=== PATIENT | male | born 1980 | race Caucasian/White ===

== ENCOUNTER 2020-07-24 10:08 | Emergency (ER) | payer OTHER ==
[~2020-07-24] VITALS: Ht 177.8 cm; Wt 93.8 kg
[2020-07-24 10:14] VITALS: BP 108/69
== END 2020-07-24 10:37 | disposition home or self-care (01) ==
LOC: ED 10:30
DX: U07.1 COVID-19 (principal); B34.9 Viral infection, unspecified
CPT/HCPCS: 99283; U0003